=== PATIENT | female | born 1950 | race Caucasian/White ===

== ENCOUNTER 2017-12-07 15:50 | Observation (INO) | payer MEDICARE, OTHER ==
[~2017-12-07] VITALS: Ht 167.6 cm; Wt 52.0 kg
[2017-12-07 15:55] VITALS: BP 188/118; PULSE 78; RESP 18; TEMP 97.3; O2SAT 100
[2017-12-07] MEDS ORDERED: PRAV10TA PO (16:28)
[2017-12-07] MEDS ORDERED: FOSA70TA PO (16:29)
[2017-12-07] MEDS ORDERED: SODIUM CHLORIDE 0.9% FLUSH 10 ML FLUSH IVF PRN (17:00)
[2017-12-07] MEDS ORDERED: ASPIRIN 81 MG CHEW TAB PO ONE (17:00)
--- NOTE | 2017-12-07 17:02 | PD ---
HPI Chief Complaint: Chest Pain Time Seen by Provider: 16:25 Travel History International Travel<30 days: No Contact w/Intl Traveler<30days: No Traveled to known affect area: No History of Present Illness HPI 67-year-old female presents to the emergency department for evaluation of an episode of midsternal chest pain that started around 4 PM this afternoon. States she was walking out of the mall when she noticed midsternal chest pain that radiated to her back. She states it felt burning in nature. She states it was up to 8-9 out of 10. She states that she has never had indigestion before. She came to the emergency department and it has resolved since arriving here. She denies shortness of breath. No abdominal pain. No nausea, vomiting, diarrhea. She is currently chest pain-free. No headache. No fevers or chills. Patient reports history of hyperlipidemia and osteopenia. Patient states that she does take an aspirin at night. She denies any history of recent stress test or cardiac catheterization. No exacerbating or alleviating factors. Moderate severity. PFSH Past Medical History High Cholesterol: Yes Diminished Hearing: No Tetanus Vaccination: Unknown ?: Not Menopausal: Yes Past Surgical History Abdominal Surgery: Yes Appendectomy: Yes Gynecologic Surgery: Yes (ENDOMETRIOSIS) Social History Alcohol Use: No Tobacco Use: No Substance Use: No Allergies-Medications (Allergen,Severity, Reaction): Coded Allergies: Sulfa (Sulfonamide Antibiotics) (Verified Allergy, Intermediate, Hives, 12/07/17) Reported Meds & Prescriptions Reported Meds & Active Scripts Active Reported Aspirin Low Dose (Aspirin) 81 Mg Chew 81 Mg CHEW HS Fosamax (Alendronate Sodium) Unknown Strength Tab Unknown Dose PO Q7D Pravastatin Unknown Strength Tab Unknown Dose PO HS Review of Systems Except as stated in HPI: all other systems reviewed are Neg Physical Exam Narrative GENERAL: Well-nourished, well-developed female patient, afebrile. SKIN: Focused skin assessment warm/dry. HEAD: Normocephalic. Atraumatic EYES: No scleral icterus. No injection or drainage. NECK: Supple, trachea midline. No JVD or lymphadenopathy. CARDIOVASCULAR: Regular rate and rhythm without murmurs, gallops, or rubs. Bilateral radial and pedal pulses are 2+. RESPIRATORY: Breath sounds equal bilaterally. No accessory muscle use. Lung sounds are clear to auscultation. GASTROINTESTINAL: Abdomen soft, non-tender, nondistended. MUSCULOSKELETAL: No cyanosis, or edema. BACK: Nontender without obvious deformity. No CVA tenderness. Data Data Last Documented VS Vital Signs Date Time Temp Pulse Resp B/P (MAP) Pulse Ox O2 Delivery O2 Flow Rate FiO2 12/07/17 18:00 65 19 165/73 (103) 97 Room Air 12/07/17 15:55 97.3 Orders Orders Electrocardiogram (12/07/17 15:56) Complete Blood Count With Diff (12/07/17 15:56) Basic Metabolic Panel (Bmp) (12/07/17 15:56) Ckmb (Isoenzyme) Profile (12/07/17 15:56) Troponin I (12/07/17 15:56) Electrocardiogram (12/07/17 16:47) Magnesium (Mg) (12/07/17 16:47) Prothrombin Time / Inr (Pt) (12/07/17 16:47) Act Partial Throm Time (Ptt) (12/07/17 16:47) Chest, Single Ap (12/07/17 16:47) Ecg Monitoring (12/07/17 16:47) Bilateral Bp Monitoring (12/07/17 16:47) Iv Access Insert/Monitor (12/07/17 16:47) Oximetry (12/07/17 16:47) Oxygen Administration (12/07/17 16:47) Aspirin Chew (Aspirin Chew) (12/07/17 17:00) Sodium Chloride 0.9% Flush (Ns Flush) (12/07/17 17:00) Hepatic Functional Panel (12/07/17 16:50) Lipase (12/07/17 16:50) Labs Laboratory Tests Test 12/07/17 17:00 White Blood Count 7.1 TH/MM3 Red Blood Count 3.73 MIL/MM3 Hemoglobin 11.4 GM/DL Hematocrit 33.9 % Mean Corpuscular Volume 90.8 FL Mean Corpuscular Hemoglobin 30.6 PG Mean Corpuscular Hemoglobin Concent 33.7 % Red Cell Distribution Width 15.0 % Platelet Count 276 TH/MM3 Mean Platelet Volume 8.1 FL Neutrophils (%) (Auto) 60.6 % Lymphocytes (%) (Auto) 24.9 % Monocytes (%) (Auto) 9.0 % Eosinophils (%) (Auto) 4.8 % Basophils (%) (Auto) 0.7 % Neutrophils # (Auto) 4.3 TH/MM3 Lymphocytes # (Auto) 1.8 TH/MM3 Monocytes # (Auto) 0.6 TH/MM3 Eosinophils # (Auto) 0.3 TH/MM3 Basophils # (Auto) 0.1 TH/MM3 CBC Comment DIFF FINAL Differential Comment Prothrombin Time 9.6 SEC Prothromb Time International Ratio 0.9 RATIO Activated Partial Thromboplast Time 24.6 SEC Blood Urea Nitrogen 13 MG/DL Creatinine 0.66 MG/DL Random Glucose 101 MG/DL Calcium Level 8.7 MG/DL Sodium Level 142 MEQ/L Potassium Level 3.6 MEQ/L Chloride Level 104 MEQ/L Carbon Dioxide Level 28.0 MEQ/L Anion Gap 10 MEQ/L Estimat Glomerular Filtration Rate 90 ML/MIN Magnesium Level 2.5 MG/DL Total Bilirubin 0.3 MG/DL Direct Bilirubin 0.1 MG/DL Indirect Bilirubin 0.2 MG/DL Aspartate Amino Transf (AST/SGOT) 27 U/L Alanine Aminotransferase (ALT/SGPT) 25 U/L Alkaline Phosphatase 52 U/L Total Creatine Kinase 91 U/L Troponin I LESS THAN 0.02 NG/ML Total Protein 7.1 GM/DL Albumin 3.6 GM/DL Lipase 191 U/L [facility] Medical Decision Making Medical Screen Exam Complete: Yes Emergency Medical Condition: Yes Medical Record Reviewed: Yes Interpretation(s) Last Impressions Chest X-Ray 12/07/17 7262 Signed Impressions: Service Date/Time: Thursday, December 07, 2017 17:11 - CONCLUSION: No acute disease. Wilber Huntley MD FACR Differential Diagnosis ACS versus GERD versus chest wall pain versus anxiety versus pneumothorax versus pneumonia Narrative Course 67-year-old female presents to the emergency department for evaluation of an episode of midsternal chest pain. She states she is currently chest pain-free. EKG shows sinus rhythm, incomplete right bundle branch block, heart rate 75, no acute ST changes. CBC, CMP, lipase, magnesium, CK, troponin, PTT, PT/INR, chest x-ray ordered and pending. Patient is given aspirin 162 mg p.o. CBC shows no acute abnormality. CMP is unremarkable. Lipase is 191. Magnesium is 2.5. CK is 91. Troponin is less than 0.02. Coags are unremarkable. Chest x-ray shows no acute disease. Patient will be admitted to the chest pain center for further evaluation. Diagnosis Primary Impression: Chest pain Qualified Codes: R07.9 - Chest pain, unspecified Admitting Information Admitting Physician Requests: Observation Condition: Jannette Mccormack ANGUS December 07, 2017 17:02
[2017-12-07 17:10] VITALS: O2SAT 99
[2017-12-07] MEDS ORDERED: ASPI81CH6 CHEW (17:10)
--- NOTE | 2017-12-07 17:26 | RADRPT ---
EXAM DATE/TIME: 12/07/2017 17:11 [place] COMPARISON: No previous studies available for comparison. INDICATIONS : Chest pain. MEDICAL HISTORY : None. SURGICAL HISTORY : None. ENCOUNTER: Initial ACUITY: 1 day PAIN SCORE: 5/10 LOCATION: middle chest. FINDINGS: A single view of the chest demonstrates the lungs to be symmetrically aerated without evidence of mas s, infiltrate or effusion. The cardiomediastinal contours are unremarkable. Osseous structures are intact. CONCLUSION: No acute disease. Wilber Huntley MD FACR on December 07, 2017 at 17:23 Board Certified Radiologist. This report was verified electronically.
[2017-12-07 17:29] LABS: AUTOMATED NEUTROPHIL # 4.3 TH/MM3 (1.8-7.7); BASOPHIL # 0.1 TH/MM3 (0-0.2); BASOPHIL % 0.7 % (0.0-2.0); EOSINOPHIL # 0.3 TH/MM3 (0-0.4); EOSINOPHIL % 4.8 % (0.0-4.0); HEMATOCRIT 33.9 % (35.0-46.0); HEMOGLOBIN 11.4 GM/DL (11.6-15.3); LYMPH % 24.9 % (9.0-44.0); LYMPHOCYTE # 1.8 TH/MM3 (1.0-4.8); MEAN CELL VOLUME 90.8 FL (80.0-100.0); MEAN CORPUSCULAR HEMOGLOBIN 30.6 PG (27.0-34.0); MEAN CORPUSCULAR HGB CONC 33.7 % (32.0-36.0); MEAN PLATELET VOLUME 8.1 FL (7.0-11.0); MONOCYTE # 0.6 TH/MM3 (0-0.9); NEUT % 60.6 % (16.0-70.0); PLATELET COUNT 276 TH/MM3 (150-450); RED BLOOD COUNT 3.73 MIL/MM3 (4.00-5.30); WHITE BLOOD COUNT 7.1 TH/MM3 (4.0-11.0)
[2017-12-07 17:45] LABS: INTERNATIONAL NORMALIZED RATIO 0.9 RATIO; PROTHROMBIN TIME - PATIENT 9.6 SEC (9.8-11.6)
[2017-12-07 17:55] LABS: ALBUMIN 3.6 GM/DL (3.4-5.0); DIRECT BILIRUBIN ADULT 0.1 MG/DL (0.0-0.2)
[2017-12-07 17:57] LABS: INDIRECT BILIRUBIN 0.2 MG/DL (0.0-0.8); TOTAL BILIRUBIN ADULT 0.3 MG/DL (0.2-1.0)
[2017-12-07 18:00] VITALS: BP 165/73; PULSE 65; PULSE 71; RESP 19; O2SAT 97
[2017-12-07 18:09] LABS: TOTAL PROTEIN 7.1 GM/DL (6.4-8.2)
[2017-12-07 18:32] LABS: BLOOD UREA NITROGEN 13 MG/DL (7-18); CALCIUM 8.7 MG/DL (8.5-10.1); CHLORIDE 104 MEQ/L (98-107); CREATININE 0.66 MG/DL (0.50-1.00); GLOMERULAR FILTRATION RATE 90 ML/MIN (>89); GLUCOSE,RANDOM 101 MG/DL (74-106); SODIUM (NA) 142 MEQ/L (136-145)
[2017-12-07 18:37] LABS: TROPONIN I LESS THAN 0.02 NG/ML (0.02-0.05)
[2017-12-07] MEDS ORDERED: SODIUM CHLORIDE 0.9% FLUSH 10 ML FLUSH IV FLUSH PRN (19:15)
[2017-12-07 20:18] VITALS: BP 170/73; PULSE 61; RESP 16; TEMP 98.1; O2SAT 100
[2017-12-07 20:43] VITALS: PULSE 67
[2017-12-07] MEDS ORDERED: SODIUM CHLORIDE 0.9% FLUSH 10 ML FLUSH IV FLUSH SCH (21:00)
[2017-12-07 21:35] LABS: TROPONIN I 0.02 NG/ML (0.02-0.05)
[2017-12-07 23:55] LABS: TROPONIN I 0.02 NG/ML (0.02-0.05)
[2017-12-08 00:10] VITALS: PULSE 65
[2017-12-08 00:18] VITALS: BP 155/66; PULSE 70; RESP 18; TEMP 98.1; O2SAT 100
[2017-12-08 04:00] VITALS: BP 116/57; PULSE 64; RESP 18; TEMP 97.8; O2SAT 99
[2017-12-08 04:10] VITALS: PULSE 60
[2017-12-08 07:44] VITALS: BP 136/61; PULSE 62; RESP 18; TEMP 97.6; O2SAT 98
--- NOTE | 2017-12-08 09:35 | HHI.HP ---
HPI Primary Care Physician No Primary Care Physician Chief Complaint Chest pain History of Present Illness This is a 67-year-old female that presents to ED via private vehicle with history of hyperlipidemia with complaint of developing a burning discomfort in the center of her chest about 230 yesterday afternoon after doing some shopping at the mall. She had lunch about an hour prior to this which included crack cake sandwich, coleslaw, and Maltese fries. Most severe intensity was not 8 out of 10. She was not short of breath, nauseous, diaphoretic. She states the symptoms began to improve as she was getting closer to the emergency department. She then began to belch while in the ED waiting area and after a belch she began to feel better. She believes the symptoms lasted about 15 minutes. She had a similar episode she believes about 13 years ago and never sought treatment. Also was recently told that she had right carotid artery stenosis. States that her lead laying and gluing machine operator heard a bruit, referred her back to her PCP who referred her to a puddler pile driving. The puddler pile driving did a carotid artery ultrasound and did reveals some blockage but not significant enough to need any intervention. She states that she was placed on aspirin. She was already on statin therapy. States she has never had a stress test. Review of Systems General: Patient denies fevers, chills, and recent travel. HEENT: Patient denies headache, sore throat, difficulty swallowing. Cardiovascular: Has the chest discomfort as mentioned above. Denies sensation of heart beating rapidly or irregularly. No syncope. Denies diaphoresis. Respiratory: Denies shortness of breath or inspirational chest discomfort. Denies coughing wheezing or hemoptysis. GI: Patient denies nausea, vomiting, diarrhea, abdominal pain, bloody stools. Musculoskeletal: Patient denies joint pain or edema. Denies calf pain or edema. Neurovascular: Patient denies numbness, tingling, weakness in extremities. Denies headache. Endocrine: Denies polyuria and polydipsia. Hematologic: Denies easy bruising. Skin: Denies rash or itching. Past Family Social History Allergies: Coded Allergies: Sulfa (Sulfonamide Antibiotics) (Verified Allergy, Intermediate, Hives, 12/07/17) Past Medical History Hyperlipidemia. Right carotid artery stenosis. Denies diabetes, hypertension, and known CAD. Past Surgical History Appendectomy. Reported Medications Reported Meds & Active Scripts Active Reported Aspirin Low Dose (Aspirin) 81 Mg Chew 81 Mg CHEW HS Fosamax (Alendronate Sodium) Unknown Strength Tab Unknown Dose PO Q7D Pravastatin Unknown Strength Tab Unknown Dose PO HS Active Ordered Medications Current Medications Medications (Trade) Dose Ordered Sig/Salazar Route Start Time Stop Time Status Last Admin (NS Flush) 2 ml UNSCH PRN IVF 12/07/17 17:00 (NS Flush) 2 ml UNSCH PRN IV FLUSH 12/07/17 19:15 (NS Flush) 2 ml BID IV FLUSH 12/07/17 21:00 12/07/17 20:45 Family History States her mother age 62 of a myocardial infarction. Social History Patient quit smoking 24 years ago. Prior to that she may smokes 1-2 cigarettes per day on and off for 20 years. Denies alcohol or illicit drug use. Physical Exam Vital Signs Vital Signs Date Time Temp Pulse Resp B/P (MAP) Pulse Ox O2 Delivery O2 Flow Rate FiO2 12/08/17 07:44 97.6 62 18 136/61 (86) 98 12/08/17 04:10 60 12/08/17 04:00 97.8 64 18 116/57 (76) 99 12/08/17 00:18 98.1 70 18 155/66 (95) 100 12/08/17 00:10 65 12/07/17 20:43 67 12/07/17 20:18 98.1 61 16 170/73 (105) 100 12/07/17 19:42 12/07/17 18:00 65 19 165/73 (103) 97 Room Air 12/07/17 18:00 71 165/73 (103) 12/07/17 17:10 99 Room Air 12/07/17 16:32 75 100 Room Air 12/07/17 15:55 97.3 78 18 188/118 (141) 100 Physical Exam GENERAL: This is a well-nourished, well-developed patient, in no apparent distress. Patient speaks in clear complete sentences. Patient is pleasant. HEENT: Head is atraumatic and normocephalic. Neck is supple without lymphadenopathy and trachea is midline. No JVD. There is a right carotid bruit. CARDIOVASCULAR: Regular rate and rhythm without murmurs, gallops, or rubs. RESPIRATORY: Clear to auscultation. Breath sounds equal bilaterally. No wheezes , rales, or rhonchi. Chest wall is nontender. No use of accessory muscles. GASTROINTESTINAL: Abdomen is nontender, nondistended. Abdomen soft. No obvious pulsatile mass or bruit. No CVA tenderness. Strong femoral pulses bilaterally. Normal bowel sounds in all quadrants. MUSCULOSKELETAL: Patient is moving upper and lower extremities freely. No calf tenderness or edema, no Homans sign. Strong pulses in upper and lower extremities. NEUROLOGICAL: Patient is alert and oriented. Cranial nerves 2-12 are grossly intact. No focal deficits and speech is clear. SKIN: No rash and turgor is normal. Laboratory Laboratory Tests Test 12/07/17 17:00 12/07/17 21:00 12/07/17 23:00 White Blood Count 7.1 Red Blood Count 3.73 Hemoglobin 11.4 Hematocrit 33.9 Mean Corpuscular Volume 90.8 Mean Corpuscular Hemoglobin 30.6 Mean Corpuscular Hemoglobin Concent 33.7 Red Cell Distribution Width 15.0 Platelet Count 276 Mean Platelet Volume 8.1 Neutrophils (%) (Auto) 60.6 Lymphocytes (%) (Auto) 24.9 Monocytes (%) (Auto) 9.0 Eosinophils (%) (Auto) 4.8 Basophils (%) (Auto) 0.7 Neutrophils # (Auto) 4.3 Lymphocytes # (Auto) 1.8 Monocytes # (Auto) 0.6 Eosinophils # (Auto) 0.3 Basophils # (Auto) 0.1 CBC Comment DIFF FINAL Differential Comment Prothrombin Time 9.6 Prothromb Time International Ratio 0.9 Activated Partial Thromboplast Time 24.6 Blood Urea Nitrogen 13 Creatinine 0.66 Random Glucose 101 Calcium Level 8.7 Sodium Level 142 Potassium Level 3.6 Chloride Level 104 Carbon Dioxide Level 28.0 Anion Gap 10 Estimat Glomerular Filtration Rate 90 Magnesium Level 2.5 Total Bilirubin 0.3 Direct Bilirubin 0.1 Indirect Bilirubin 0.2 Aspartate Amino Transf (AST/SGOT) 27 Alanine Aminotransferase (ALT/SGPT) 25 Alkaline Phosphatase 52 Total Creatine Kinase 91 73 69 Troponin I LESS THAN 0.02 0.02 0.02 Total Protein 7.1 Albumin 3.6 Lipase 191 Result Diagram: 12/07/17 1700 12/07/17 1700 Imaging Last 48 hours Impressions Chest X-Ray 12/07/17 1647 Signed Impressions: Service Date/Time: Thursday, December 07, 2017 17:11 - CONCLUSION: No acute disease. Wilber Huntley MD FACR Course EKGs are sinus rhythm with incomplete right bundle branch block. No significant ST segment depressions or elevations. Caprini VTE Risk Assessment Caprini VTE Risk Assessment: Mod/High Risk (score >= 2) Caprini Risk Assessment Model Point Value = 1 Point Value = 2 Point Value = 3 Point Value = 5 Age 41-60 Minor surgery BMI > 25 kg/m2 Swollen legs Varicose veins or History of unexplained or recurrent spontaneous Oral contraceptives or hormone replacement Sepsis (< 1 month) Serious lung disease, including pneumonia (< 1 month) Abnormal pulmonary function Acute myocardial infarction Congestive heart failure (< 1 month) History of inflammatory bowel disease Medical patient at bed rest Age 61-74 Arthroscopic surgery Major open surgery (> 45 min) Laparoscopic surgery (> 45 min) Malignancy Confined to bed (> 72 hours) Immobilizing plaster cast Central venous access Age >= 75 History of VTE Family history of VTE Factor V Leiden Prothrombin [id number] Lupus anticoagulant Anticardiolipin antibodies Elevated serum homocysteine Heparin-induced thrombocytopenia Other congenital or acquired thrombophilia Stroke (< 1 month) Elective arthroplasty Hip, pelvis, or leg fracture Acute spinal cord injury (< 1 month) Prophylaxis Regimen Total Risk Factor Score Risk Level Prophylaxis Regimen 0-1 Low Early ambulation 2 Moderate Order ONE of the following: *Sequential Compression Device (SCD) *Heparin 5000 units SQ BID 3-4 Higher Order ONE of the following medications: *Heparin 5000 units SQ TID *Enoxaparin/Lovenox 40 mg SQ daily (WT < 150 kg, CrCl > 30 mL/min) *Enoxaparin/Lovenox 30 mg SQ daily (WT < 150 kg, CrCl > 10-29 mL/min) *Enoxaparin/Lovenox 30 mg SQ BID (WT < 150 kg, CrCl > 30 mL/min) AND/OR *Sequential Compression Device (SCD) 5 or more Highest Order ONE of the following medications: *Heparin 5000 units SQ TID (Preferred with Epidurals) *Enoxaparin/Lovenox 40 mg SQ daily (WT < 150 kg, CrCl > 30 mL/min) *Enoxaparin/Lovenox 30 mg SQ daily (WT < 150 kg, CrCl > 10-29 mL/min) *Enoxaparin/Lovenox 30 mg SQ BID (WT < 150 kg, CrCl > 30 mL/min) AND *Sequential Compression Device (SCD) Assessment and Plan Assessment and Plan * Chest pain: Patient has had serial cardiac enzymes and EKGs for ruling out purposes. There are risk factors for heart disease however symptoms do sound a little GI related. Patient will be seen by Dr. Cook of cardiology in the chest pain center and will likely undergo a stress test. If her stress test were to be nonischemic she would then be discharged home with instructions to follow-up with PCP. She should return to ED for interval issues. * Hyperlipidemia: Continue medication. * Right carotid bruit: Patient states his history of right carotid artery stenosis. She should continue her follow-up with her puddler pile driving. Patient is stable at this time. She is agreeable to this plan. Nuno Burgos December 08, 2017 09:35
--- NOTE | 2017-12-08 10:34 | HHI.DCPOC ---
Discharge Care Plan Diagnosis: (1) Chest pain, atypical (2) Hyperlipidemia (3) Carotid artery bruit Goals to Promote Your Health * To prevent worsening of your condition and complications * To maintain your health at the optimal level Directions to Meet Your Goals Take your medications as prescribed Follow your dietary instruction Follow activity as directed Keep your appointments as scheduled Take your immunizations and boosters as scheduled If your symptoms worsen call your PCP, if no PCP go to Urgent Care Center or Emergency Room Smoking is Dangerous to Your Health. Avoid second hand smoke Call the 24-hour hour crisis hotline for domestic abuse at Nuno Burgos December 08, 2017 10:34
--- NOTE | 2017-12-08 10:41 | TR ---
Date Performed: 12/08/2017 Time Performed: 09:52:03 DOCTOR: Dimas Cook DRUG LIST: CLINICAL HISTORY: REASON FOR TEST: REASON FOR ENDING: OBSERVATION: CONCLUSION: DENEEN PROTOCOL. NO CP. TEST STOPPED AFTER EXCEEDING GOAL HR SECONDARY TO SOB AND LEG FATIGUE. PVCS AND RARE PAC.Maximum YF=963 Target XA=461 % Target HR Qzwpgzpn=353.0% Total Exercise T lamar=5:01 COMMENTS: Conclusion: Normal treadmill exercise. No evidence of ischemia.
--- NOTE | 2017-12-08 13:53 | EKG ---
Date Performed: 12/07/2017 Time Performed: 23:19:43 PTAGE: 67 years EKG: Sinus rhythm INCOMPLETE RIGHT BUNDLE BRANCH BLOCK BORDERLINE ECG PREVIOUS TRACING : 12/07/2017 20.08 Since previous tracing, no significant change noted DOCTOR: Dimas Cook Interpretating Date/Time 12/08/2017 13:51:48
--- NOTE | 2017-12-08 14:14 | EKG ---
Date Performed: 12/07/2017 Time Performed: 20:08:36 PTAGE: 67 years EKG: SINUS BRADYCARDIA INCOMPLETE RIGHT BUNDLE BRANCH BLOCK BORDERLINE ECG PREVIOUS TRACING : 12/07/2017 16.02 DOCTOR: Dimas Cook Interpretating Date/Time 12/08/2017 14:12:56
--- NOTE | 2017-12-08 14:17 | EKG ---
Date Performed: 12/07/2017 Time Performed: 16:02:18 PTAGE: 67 years EKG: Sinus rhythm INCOMPLETE RIGHT BUNDLE BRANCH BLOCK BORDERLINE ECG NO PREVIOUS TRACING DOCTOR: Dimas Cook Interpretating Date/Time 12/08/2017 14:15:55
== END 2017-12-08 11:21 | disposition home or self-care (01) ==
LOC: NEPC 15:50 → NEDA 19:12 → NEPHCDU 19:46
PROVIDERS: ADMIT Internal Medicine Cardiovascular Disease; ATTEND Internal Medicine Cardiovascular Disease
DX: R07.89 Other chest pain (principal); E78.5 Hyperlipidemia, unspecified; I65.21 Occlusion and stenosis of right carotid artery; I45.10 Unspecified right bundle-branch block; R00.1 Bradycardia, unspecified; M85.80 Other specified disorders of bone density and structure, unspecified site; Z79.899 Other long term (current) drug therapy; Z79.82 Long term (current) use of aspirin; Z87.891 Personal history of nicotine dependence
CPT/HCPCS: 71045; 80048; 80076; 82550; 83690; 83735; 84484; 85025; 85610; 85730; 93005; 93017; 99285; G0378